=== PATIENT | male | born 1950 | race Caucasian/White ===

== ENCOUNTER 2022-02-25 13:30 | Emergency (ER) | payer MEDICARE, BC ==
[~2022-02-25 13:30] MED LIST: Sodium Chloride 0.9% 10 ML Syringe FLUSH PRN
[2022-02-25 14:42] LABS: ANION GAP 12.8 mmol/L (5-15); CHLORIDE,CL 104 mmol/L (98-107); SODIUM,NA 142 mmol/L (136-145)
[2022-02-25 14:44] LABS: ESTIMATED GFR 96 mL/min (>=60)
== END 2022-02-25 14:40 ==
LOC: KA.ED 13:30
DX: G20 Parkinson's disease (principal); G31.83 Neurocognitive disorder with Lewy bodies; R79.89 Other specified abnormal findings of blood chemistry; I10 Essential (primary) hypertension; E78.00 Pure hypercholesterolemia, unspecified; E11.9 Type 2 diabetes mellitus without complications; Z79.899 Other long term (current) drug therapy; Z79.82 Long term (current) use of aspirin; Z79.84 Long term (current) use of oral hypoglycemic drugs
CPT/HCPCS: 36415; 70450; 80053; 83605; 83880; 84484; 85025; 85730; 99285